=== PATIENT | male | born 1960 | race Caucasian/White ===

== ENCOUNTER 2024-01-15 11:43 | Emergency (ER) | payer BC, SELFPAY ==
[2024-01-15 11:49] VITALS: BP 152/94
[2024-01-15 12:08] LABS: % Basophils 0.3 % (0-2); % Eosinophils 0.1 % (0-6); % Immature Granulocytes 0.2 % (0-0.5); % Lymphocytes 14.8 % (20.5-51.1); % Monocytes 8.2 % (1.7-9.3); % Neutrophils 76.4 % (42.2-75.2); Absolute Lymphocytes 1.7 10^3/uL (1.2-3.4); Absolute Neutrophils 8.9 10^3/uL (1.4-6.5); Hematocrit 40.1 % (39.0-52.0); Mean Corp Hgb Conc. 34.9 g/dL (33.0-37.0); Mean Corpuscular Hgb 29.5 pg (27.0-31.0); Mean Corpuscular Volume 84.4 fL (80.0-94.0); Mean Platelet Volume 9.5 fL (7.4-10.4); Nucleated Red Blood Cells % 0 % (-); Platelet Count 262 10^3/uL (130-400); Red Blood Cell Count 4.75 10^6/uL (4.70-6.10); Red Cell Dist. Width 12.8 % (11.5-14.5); White Blood Cell Count 11.6 10^3/uL (4.8-10.8)
[2024-01-15 12:15] VITALS: BMI 25.8
[2024-01-15 12:27] LABS: ALT (SGPT) 32 U/L (0-50); AST (SGOT) 29 U/L (17-59); Albumin 4.5 g/dl (3.5-5.0); Alkaline Phosphatase 70 U/L (38-126); Blood Urea Nitrogen 26 mg/dl (9-20); Calcium 9.7 mg/dl (8.4-10.2); Carbon Dioxide 27 mmol/L (22-30); Chloride 101 mmol/L (98-107); Estimated Creatinine Clearance 63 ml/min; Glucose 103 mg/dl (70-99); Potassium 4.2 mmol/L (3.5-5.1); Sodium 135 mmol/L (135-145); Total Bilirubin 0.9 mg/dl (0.2-1.3); Total Protein 7.4 g/dl (6.3-8.2); eGFR > 60.00
[2024-01-15 12:35] LABS: Urine Albumin 2+ (Neg - Trace); Urine Bilirubin Negative (Negative); Urine Character Slightly Cloudy (Clear); Urine Color Amber; Urine Glucose Negative (Negative); Urine Ketone Trace (Negative); Urine Leukocyte 2+ (Negative); Urine Nitrite Positive (Negative); Urine Occult Blood 4+ (Negative); Urine Specific Gravity 1.015 (<1.030); Urine Urobilinogen Negative (Neg - 1+)
[2024-01-15 13:22] LABS: Urine Bacteria Few (Negative); Urine Red Blood Cell 80-90 /HPF (0-2)
--- NOTE | 2024-01-15 14:05 | ED.GENMED ---
Addendum entered and electronically signed by PRITESH Garrison 01/19/24 13:21:
Patient's urine culture shows Salmonella patient was placed on Cipro which is not listed. I spoke with patient at home he is feeling better no urinary symptoms at this time no fever. He does have an appointment with urology on Saturday in the
next several days. Will change to Keflex 500 mg twice daily for 1 week this medication sent to his pharmacy
Original Note:
History of Present Illness
General
Chief Complaint: Urinary Symptoms
Source: patient
Exam Limitations: none
Time Seen by Provider: 01/15/24 12:41
Nursing documentation reviewed up to this point in time: agreed with
History of Present Illness
History of Present Illness:
63-year-old male presents to the emergency room for evaluation of hematuria. Patient reports onset of symptoms this morning at around 10 AM�he reports that he was having some urinary urgency and was passing blood in his urine as well as some clots.
He was able to still empty his bladder. Came to the emergency room for assessment. He denies any abdominal or flank pain. Denies fevers or chills. He denies any trauma. Denies having had similar symptoms in the past. He says that since
arrival he was able to go to the bathroom and his urine has cleared up without blood anymore. He denies any smoking history. He denies any blood thinners. He is sexually active in a monogamous relationship.
Past History
Past History
ED Past Medical History: None, Hypothyroidism and Other (Back pain)
ED Past Surgical History: Orthopedic (Back epidural)
Social History
Tobacco: Non-smoker
Alcohol: None
Drug: None
Review of Systems
Review of Systems
All Other Systems: ROS reviewed and negative except as documented in HPI and ROS
Constitutional: Denies fever or chills
Respiratory: Denies trouble breathing
Cardiac: Denies chest pain
ABD/GI: Denies abdominal pain, nausea or vomiting
: Reports frequency, urgency and bleeding (Hematuria); Denies dysuria or flank pain
Musculoskeletal: Denies neck pain or back pain
Neurological: Denies dizzy or headache
Phy Exam
Physical Exam
Physical Exam:
General: Awake, alert; no acute distress
Head: Normocephalic, atraumatic
Eyes: Conjunctiva normal
Throat: Airway intact, handling secretions
Neck: Trachea midline
Lungs: Clear to auscultation bilaterally, no wheezing, rales, rhonchi
Heart: Regular rate and rhythm, no murmurs, gallops, or rubs
Abd: Soft, non distended, nontender with no palpable masses
Back: No CVA tender
Neuro: No gross deficit
Skin: no rash
Extremities: Warm and well-perfused
Scores
Heart Failure Risk
Heart Failure Risk Score: Not Applicable
Heart Score for Chest Pain Patients
STEMI patient?: Not applicable
Withdrawal Assessment of Alcohol
Withdrawal Assessment Completed?: Not applicable
Course
Orders/Labs/Results
Orders:
Orders
01/15/24 12:02
CMP [Comprehensive Metabolic Panel] Urgent
Complete Blood Count/With Diff Urgent
01/15/24 12:12
Urinalysis Reflex To Culture Urgent
Date Specimen was Collected: 01/15/24
Time Specimen was Collected: 12:11
Urine Microscopic Reflex Cult Urgent
Urine Culture Urgent
CAROLYNE Source: U
Specimen Description:
Date Specimen was Collected: 01/15/24
Time Specimen was Collected: 12:11
01/15/24 14:00
Ciprofloxacin HCl [Cipro] 500 mg PO ONCE ONE
Abnormal Lab Results
01/15/24 01/15/24
12:02 12:12
WBC 11.6 H 10^3/uL
(4.8-10.8)
Absolute Neuts (auto) 8.9 H 10^3/uL
(1.4-6.5)
Absolute Monos (auto) 1.0 H 10^3/uL
(0.1-0.6)
Neutrophils % 76.4 H %
(42.2-75.2)
Lymphocytes % 14.8 L %
(20.5-51.1)
BUN 26 H mg/dl
(9-20)
Glucose 103 H mg/dl
(70-99)
Urine Ketones Trace A
(Negative)
Ur Occult Blood Reflex 4+ A
(Negative)
Urine Nitrite (Reflex) Positive A
(Negative)
Leukocyte Esterase Rfl 2+ A
(Negative)
Urine RBC 80-90 A /HPF
(0-2)
Urine Bacteria (Reflex) Few A
(Negative)
Urine Albumin (Reflex) 2+ A
(Neg - Trace)
01/15/24 12:02
01/15/24 12:02
Vital Signs
Initial and Last Documented VS:
Initial Vital Signs
Temp Pulse Resp BP Pulse Ox
37.1 C 78 20 152/94 96
01/15/24 11:49 01/15/24 11:49 01/15/24 11:49 01/15/24 11:49 01/15/24 11:49
Last Documented Vital Signs
Temp Pulse Resp BP Pulse Ox
37.1 C 78 20 152/94 96
01/15/24 11:49 01/15/24 11:49 01/15/24 11:49 01/15/24 11:49 01/15/24 11:49
MDM/Problems Addressed
Differential Diagnosis Includes:
UTI, bladder mass, bladder polyp
MDM/Problems Addressed:
63-year-old male presents to the emergency room for evaluation of hematuria today�passed blood and clots but urine has since cleared up. Hypertensive but otherwise normal vitals. Exam as above. Labs in triage including a CBC which shows marginal
leukocytosis, CMP which shows no clinically significant abnormalities. Urinalysis sent off positive for blood, also has bacteria, 6-10 whites and positive for nitrites�given full clinical picture concern for an acute UTI. Fortunately his urine has
cleared up although he is still having frequency of urination. Postvoid bladder scan shows 15 cc of urine in the bladder�he is not retaining urine. I think he is stable for discharge at this point will start on antibiotics and refer to urology for
outpatient follow-up. I spoke to him in detail about this plan and he is comfortable with it. I did speak to him about need for further assessment of his hematuria even with antibiotic treatment to rule out alternate causes. Spoke to him about
return precautions. All questions answered.
Acute Exacerbation and/or Progression of Chronic Illness:
Acutely hypertensive with no signs or symptoms of hypertensive emergency�no indication for emergent antihypertensive treatment at present
Acute Exacerbation and/or Progression of Chronic Illness: HTN
*Pulse Oximetry
Patient hypoxic: no
*Critical Care Note
Total Time (30-74mins, 75-104mins- exclusive of procedures): Not Applicable
Data Reviewed
Source: patient
ED Attending Note
-
Portions of this chart may have been created with voice recognition software.� Occasional wrong word or��sound alike� substitutions may have occurred due to the inherent limitations of voice recognition software.
Discharge Plan
Departure
Patient Disposition: Home (Routine Discharge)
Date of Disposition: 01/15/24
Time of Disposition: 14:01
Patient with high blood pressure during this ER visit?: Yes
Discharge Problem:
Hematuria, Acute UTI, Hypertension
Instructions: Urinary Tract Infection, Adult (DC), Blood in the Urine (Hematuria), Adult (DC), BLOOD PRESSURE
Prescriptions:
New
ciprofloxacin HCl 500 mg tablet
500 mg PO BID Qty: 14 0RF
No Action
thyroid (pork) [[place] Thyroid] 60 MG tablet
120 mg PO DAILY
esomeprazole magnesium [Nexium] 20 mg Capsule,Delayed Release(Dr/Ec)
20 mg PO DAILY
Referrals:
Gregory Falk DO [Family Provider] - Follow up in 5-7 days
Brown Nicolas MD [Active] - Call in 1-3 days for appt (Urology)
Activity Restrictions/Additional Instructions:
You were seen in the emergency room for blood in your urine. You had an evaluation here and we think you could have a urinary tract infection that is causing this. You should take your antibiotic as prescribed. You should make sure that you are
drinking plenty of fluids to try and keep your urine as clear as possible to prevent formation of blood clots. If you are having difficulty emptying your bladder you should return to the emergency room for reassessment. If you have worsening
symptoms or develop fevers you should return for reassessment. Otherwise--even if you continue to have some minor bleeding in your urine but are able to pass urine without issue--you should follow-up with the urologist within the next week to have
further evaluation to rule out alternate causes for the blood in your urine including issues with the bladder as we discussed in the ER.
Thank you for visiting the Emergency Department at [facility].
1. Please schedule a follow up appointment as directed. Call first thing tomorrow morning to make an appointment.
2. If indicated, please take your medications as instructed and indicated on discharge paperwork.
3. If any of your symptoms do not improve, or persist, or become more severe within 6-12 hours, please return to the emergency department for further care.
4. Please return to the emergency department if you develop a headache, neck pain/stiffness, fever greater than 100.4F, chest pain, shortness of breath, persistent nausea, vomiting, slurred speech, difficulty walking, numbness/tingling, weakness,
signs of infection or any other symptoms that are worrisome to you.
Please call [phone] if you have any questions.
Interventions
Interventions:
*Risk Screen - Suicide Last Done: 01/15/24 12:15
*General Assessment Last Done: 01/15/24 12:16
*Neglect/Abuse Screening Last Done: 01/15/24 12:15
ED- Fall Risk Assessment Last Done: 01/15/24 12:14
*ED COVID-19 Vaccine History Last Done: 01/15/24 12:15
ED-Male Genitourinary Assessment Last Done: 01/15/24 12:17
Discharge Date and Time
Print Language: BOLIVIAN
[2024-01-15] MEDS: CIPRO 500 MG PO (14:28)
[2024-01-15 14:29] VITALS: BP 152/82
== END 2024-01-15 14:39 | disposition home or self-care (01) ==
LOC: EMR 11:43
PROVIDERS: Emergency Medicine; EMERGENCY PHYSICIAN Emergency Medicine; FAMILY PHYSICIAN Family Medicine
DX: R31.9 Hematuria, unspecified (principal); N39.0 Urinary tract infection, site not specified; I10 Essential (primary) hypertension; E03.9 Hypothyroidism, unspecified; E78.5 Hyperlipidemia, unspecified
CPT/HCPCS: 99283; 51798; 80053; 81003; 81015; 85025; 87077; 87086; 87186

== ENCOUNTER → 2024-02-07 15:28 | Outpatient (REF) | payer BC, SELFPAY | LOC: HWRAD 15:28 | PROVIDERS: ATTENDING PHYSICIAN Surgery; FAMILY PHYSICIAN Family Medicine | DX: R31.9 Hematuria, unspecified (principal) | CPT/HCPCS: 74178; Q9967 ==